=== PATIENT | female | born 1990 | race Caucasian/White ===

== ENCOUNTER 2024-03-31 20:22 | Emergency (ER) | payer BC, OTHER ==
[~2024-03-31] VITALS: Ht 162.6 cm; Wt 82.6 kg
[~2024-03-31 20:22] MED LIST: IBUP-1984 PO; NITR100C6 PO; NO HOME MEDS
[2024-03-31] MEDS ORDERED: HYDR-3965 PO (21:51)
[2024-03-31 22:07] VITALS: BP 174/114; PULSE 88; RESP 16; TEMP 97.7; O2SAT 98
== END 2024-03-31 22:04 | disposition home or self-care (01) ==
LOC: ER 20:22
DX: S80.811A Abrasion, right lower leg, initial encounter (principal); S19.9XXA Unspecified injury of neck, initial encounter; S09.90XA Unspecified injury of head, initial encounter; M54.2 Cervicalgia; Z91.040 Latex allergy status; Z79.899 Other long term (current) drug therapy; Z79.1 Long term (current) use of non-steroidal anti-inflammatories (NSAID); W19.XXXA Unspecified fall, initial encounter; Y93.89 Activity, other specified; Y92.89 Other specified places as the place of occurrence of the external cause; Y99.8 Other external cause status
CPT/HCPCS: 70450; 72125; 99284

== ENCOUNTER 2025-04-06 16:07 | Emergency (ER) | payer OTHER ==
[~2025-04-06] VITALS: Ht 162.6 cm; Wt 68.0 kg
[~2025-04-06 16:07] MED LIST changes: +HYDR-3965 PO
[2025-04-06 19:05] LABS: MEAN PLATELET VOLUME 8.7 FL (7.4-10.4); RED CELL DISTRIBUTION WIDTH 14.4 % (11.5-14.5)
--- NOTE | 2025-04-06 19:12 | ELECTROCARDIOGRAPH REPORT ---
[facility] Test Date: 2025-04-06 Test Time: 19:09:35 Pat Name: DEREK CUMMINS Department: [facility]- Patient ID: [facility]-[id number] Room: Gender: F Dietetic Intern: : 1990 Requested By: NAVEED MELTON Order Number: [id number] Reading MD: Measurements Intervals [place] Rate: 73 P: 65 MT: 179 QRS: 69 QRSD: 76 T: 50 QT: 397 QTc: 438 Interpretive Statements Sinus rhythm Probable left atrial enlargement Please click the below link to view image of tracing.
[2025-04-06 19:18] LABS: CREATININE 1.00 MG/DL (0.40-0.90); TOTAL CARBON DIOXIDE 26.9 MMOL/L (24-32); eCRCL 68 ML/MIN; eGFR 63 ML/MIN
[2025-04-06 20:08] LABS: URINE HCG NEGATIVE (NEG)
[2025-04-06 20:14] LABS: LEUKOCYTE ESTERASE ,URINE NEGATIVE (Neg); NITRITES, URINE NEGATIVE (Neg); OCCULT BLOOD,URINE MODERATE (Neg)
[2025-04-06 20:16] LABS: UA COLLECTION TYPE CLN CATCH MIDSTREAM
[2025-04-06 20:22] LABS: MUCUS STRANDS FEW /LPF (Neg); SQUAMOUS EPITHELIAL CELL,UR FEW /LPF (FEW)
--- NOTE | 2025-04-06 21:09 | Physician Documentation ---
History of Present Illness ~ Chief Complaint: Anxiety Stated Complaint: PANIC ATTACKS Time Seen by MD: 17:03 Primary Medical Doctor: Esau Mode of Arrival: POV, Ambulatory HPI Patient is a 34-year-old female that presents to the emergency department for evaluation of anxiety and panic attacks for the last several days. Patient reports that she has a significant history of anxiety and panic attacks. Patient reports that she stopped taking her medications several months ago and has recently restarted it. Patient reports that she took some of her old Xanax she only takes half a half a pill a day but it does not seem to be working. Patient reports that she has had increased episodes of anxiety including at her child's school and while trying to drive with no obvious triggers. Patient does not report any increased stress or any known cause of her current anxiety or panic attacks. Patient denies taking anything other than her patient has an anxiety medication and a half of a Xanax today. Medication Reconciliation Allergies: Coded Allergies: latex (Verified Allergy, Unknown, 12/31/17) Scheduled Cephalexin*Monohydrate* (Keflex*), 1 CAP PO QID Nitrofurantoin Monohyd/M-Cryst (Macrobid 100 mg Capsule), 1 CAP PO Q12H Scheduled PRN Diazepam (Valium), 1 TAB PO Q12H PRN PRN for anxiety Hydrocodone Bit/Acetaminophen 5/325 MG ([place] 5/325 MG), 1 TAB PO Q6H PRN for pain Ibuprofen* (Motrin*), 1-2 TAB PO Q8H PRN Miscellaneous Medications Home Med List (No Home Medications), (Reported) Past Medical History Past Medical History: No Pertinent History Past Surgical History: no surgical history Last Menstrual Period: Apr 06, 2025 Smoking Status: Current every day smoker Alcohol Use: Heavy Drug Use: none Lives In: Home Review of Systems ROS As stated above in the HPI, otherwise all systems are reviewed and negative. Physical Exam Vital Signs: Temperature: 96.3, Source: Temporal, Heart Rate: 86, Respiratory Rate: 16, BP: 155/105, Pulse Oximetry: 100, Weight: 67.950 Oxygen Flow Rate: 0 Physical Exam VITALS: Reviewed and as above. GENERAL: Alert, presents with mild distress HEENT: Normocephalic, atraumatic, PERRL, EOMI, dry mucosa, no erythema RESPIRATORY: Lungs clear, normal breath sounds, no respiratory distress. CHEST: No accessory muscle use, no retractions CV: Regular rate, rhythm, no edema, no murmur, No: JVD, hypertensive GI: Soft, non-tender, bowels sounds present, no rebound, guarding, or rigidity BACK: No CVA tenderness, or swelling MUSCULOSKELETAL No deformities, no edema SKIN: Warm and dry, no rash NEURO: Oriented x4, No motor or sensory deficit PSYCH: Normal mood and affect, no agitation Progress Results/Orders Results/Orders Completed Orders - NAVEED MELTON [employer]YCLING [employer] Cbc/Diff (04/06/25 18:45) CMP (04/06/25 18:45) Hcg, Ur Ql (04/06/25 18:45) Stat Ekg (04/06/25 18:45) TSH (04/06/25 18:45) Clonidine Tablet (Catapres Tablet) (04/06/25 18:50) Ua W/Microscopic, Cult If Ind (04/06/25 19:50) Lorazepam Tablet (Ativan Tablet) (04/06/25 20:25) Diazepam Inj (Valium Inj) (04/06/25 20:55) Ondansetron Disint. Tablet (Zofran Odt T (04/06/25 21:30) Iohexol 300mg/Ml 100ml Inj. (Omnipaque-3 (04/06/25 22:14) Acetaminophen 325mg Tablet (Tylenol Tabl (04/06/25 22:20) Cephalexin Capsule (Keflex Capsule) (04/06/25 23:50) Medications Received in ER Medications (Trade) Dose Ordered Sig/Reshma Route PRN Reason Start Time Stop Time Status Last Admin Dose Admin (Catapres tablet) 0.1 mg ONCE ONCE PO 04/06/25 18:50 04/06/25 18:51 DC 04/06/25 19:51 0.1 MG (Valium inj) 5 mg ONCE ONCE IM 04/06/25 20:55 04/06/25 20:58 DC 04/06/25 21:18 5 MG (Zofran ODT tablet) 4 mg ONCE ONCE PO 04/06/25 21:30 04/06/25 21:31 DC 04/06/25 22:18 4 MG (Tylenol tablet) 1,000 mg ONCE ONCE PO 04/06/25 22:20 04/06/25 22:21 DC 04/06/25 22:29 1,000 MG (Keflex capsule) 500 mg ONCE ONCE PO 04/06/25 23:50 04/06/25 23:52 DC 04/07/25 00:17 500 MG Vital Signs 04/06/25 04/06/25 04/06/25 04/06/25 16:08 16:23 19:53 21:15 Temp 96.3 Pulse 100 86 96 Resp 18 16 16 B/P (MAP) 188/115 155/105 (122) 156/112 (127) Pulse Ox 100 100 99 O2 Flow Rate 0 04/06/25 04/07/25 23:00 00:16 Pulse 83 73 Resp 16 16 B/P (MAP) 136/82 (100) 126/92 (103) Pulse Ox 99 99 O2 Flow Rate 0 0 Laboratory Tests Test 04/06/25 18:56 04/06/25 19:50 White Blood Count 7.1 Red Blood Count 5.35 Hemoglobin 16.0 Hematocrit 47.3 H Mean Corpuscular Volume 88.5 Mean Corpuscular Hemoglobin 30.0 Mean Corpuscular Hemoglobin Concent 33.9 Red Cell Distribution Width 14.4 Platelet Count 235 Mean Platelet Volume 8.7 Neutrophils (%) (Auto) 67.0 Lymphocytes (%) (Auto) 22.5 Monocytes (%) (Auto) 8.5 Eosinophils (%) (Auto) 1.4 Basophils (%) (Auto) 0.6 Neutrophils # (Auto) 4.8 Lymphocytes # (Auto) 1.6 Monocytes # (Auto) 0.6 Eosinophils # (Auto) 0.1 Basophils # (Auto) 0.0 CBC Comment Sodium Level 136 Potassium Level 3.6 Chloride Level 102 Carbon Dioxide Level 26.9 Anion Gap 7 L Blood Urea Nitrogen 9 Creatinine 1.00 H Estimated GFR/1.73 m2 63 BUN/Creatinine Ratio 9.0 L Glucose Level 90 Calcium Level 9.1 Total Bilirubin 0.5 Aspartate Amino Transf (AST/SGOT) 30 Alanine Aminotransferase (ALT/SGPT) 61 Alkaline Phosphatase 83 Total Protein 7.8 Albumin 3.8 Globulin 4.0 Albumin/Globulin Ratio 1.0 L Thyroid Stimulating Hormone (TSH) 2.00 Chemistry Comments Urine Specimen Description Cln catch midstream Urine Color Yellow Urine Clarity Clear Urine pH 6.5 Urine Specific [place] 1.020 Urine Protein Negative Urine Glucose (UA) Negative Urine Ketones Trace H Urine Occult Blood Moderate H Urine Nitrite Negative Urine Bilirubin Small Urine Urobilinogen 0.2 Urine Leukocyte Esterase Negative Urine RBC 0-2 Urine WBC 0-4 Urine Squamous Epithelial Cells Few Urine Bacteria 1+ Urine Mucus Few Urine Culture Indicated Not ind Volume Urine Centrifuged 10 ml Urine HCG, Qualitative Negative Urine Comment Medical Decision Making Findings 1. This patient presents with symptoms consistent with acute anxiety reaction / panic attack. Low suspicion for acute cardiopulmonary process including ACS, PE, or thoracic aortic dissection. Denies any ingestions or any other medical complaints. No evidence of alcohol withdrawal symptoms. Given history and physical presentation not consistent with overt toxidrome, ingestion. Presentation not consistent with a medical emergency at this time. No acute indication for psychiatric consultation (without SI/HI, AH/VH). Cautious return precautions discussed with full understanding. Head CT negative. Patient given IM Valium with improvement. She will follow up with her primary care provider. Patient will follow up with her mental health provider on the 24 of April or sooner. Patient will return to the emergency department with any worsening or recurrent symptoms or any additional concerning symptoms that we discussed here today i.e. chest pain shortness of breath inability to calm down concern for hurting herself or anyone else or any other concerning symptoms. 2. This patient presents with symptoms consistent with acute uncomplicated cystitis. No systemic symptoms. Not septic. Well appearing. Low suspicion for acute pyelonephritis given lack of fever, CVAT, or systemic features. Low suspicion for kidney stone or infected stone. Upreg negative so doubt ectopic pregnancy_. Low suspicion for ovarian torsion, PID, or appendicitis. Antibiotics prescribed. Patient will follow up with primary care provider. Return to the emergency department with any worsening or recurrent symptoms or any additional concerning symptoms we discussed here today i.e. fevers nausea vomiting back pain or any other concerning symptoms. Differential Dx:Considerations: Include: Alcohol abuse, Anxiety, Bipolar disorder, Conversion disorder, Depression, Encephaloathy, Homicidal, Panic disorder, Personality disorder, Schizophrenia, Substance abuse, Suicidal, Other Departure Disposition: 01 HOME / SELF CARE / HOMELESS Impression: Primary Impression: Anxiety Additional Impressions: Panic attack Urinary tract infection Condition: Stable Discharge Instructions: Alcohol Withdrawal Syndrome, Glgs-[id number]-Namn, Generalized Anxiety Disorder, Adult, Panic Attack, Urinary Tract Infection, Adult Additional Instructions: 1. This patient presents with symptoms consistent with acute anxiety reaction / panic attack. Low suspicion for acute cardiopulmonary process including ACS, PE, or thoracic aortic dissection. Denies any ingestions or any other medical complaints. No evidence of alcohol withdrawal symptoms. Given history and physical presentation not consistent with overt toxidrome, ingestion. Presentation not consistent with a medical emergency at this time. No acute indication for psychiatric consultation (without SI/HI, AH/VH). Cautious return precautions discussed with full understanding. Head CT negative. Patient given IM Valium with improvement. She will follow up with her primary care provider. Patient will follow up with her mental health provider on the 24 of April or sooner. Patient will return to the emergency department with any worsening or recurrent symptoms or any additional concerning symptoms that we discussed here today i.e. chest pain shortness of breath inability to calm down concern for hurting herself or anyone else or any other concerning symptoms. 2. This patient presents with symptoms consistent with acute uncomplicated cystitis. No systemic symptoms. Not septic. Well appearing. Low suspicion for acute pyelonephritis given lack of fever, CVAT, or systemic features. Low suspicion for kidney stone or infected stone. Upreg negative so doubt ectopic pregnancy_. Low suspicion for ovarian torsion, PID, or appendicitis. Antibiotics prescribed. Patient will follow up with primary care provider. Return to the emergency department with any worsening or recurrent symptoms or any additional concerning symptoms we discussed here today i.e. fevers nausea vomiting back pain or any other concerning symptoms. Referrals: NO PRIMARY CARE PROVIDER (PCP) Prescriptions Diazepam (Valium) 5 Mg Tablet 1 TAB PO Q12H PRN PRN for anxiety for 30 Days, #60 TAB 0 Refills Prov: NAVEED MELTON 04/06/25 Cephalexin*Monohydrate* (Keflex*) 500 Mg Capsule 1 CAP PO QID, #28 CAP Prov: NAVEED MELTON 04/06/25 Education Educated: Patient Educated regarding: diagnosis, treatment, need for follow up Signature Scribe Signature: A Attestation: Scribed for Naveed Melton by DAYNA Jacobs . 04/06/25 23:53 NAVEED MELTON Apr 06, 2025 21:09
[2025-04-06] MEDS: diazepam inj 5 MG/ML inj. IM ONE (21:18)
[2025-04-06] MEDS ORDERED: iohexol 300mg/ml 100ml inj. ONE (22:14)
[2025-04-06] MEDS: ondansetron 4mg rapidly disintigrating tab PO ONE (22:18)
[2025-04-06] MEDS ORDERED: DIAZ5TAB PO (23:49)
[2025-04-06] MEDS ORDERED: CEPH-585 PO (23:49)
[2025-04-07 01:22] VITALS: BP 134/80; PULSE 76; RESP 16; TEMP 98.1; O2SAT 99
--- NOTE | 2025-04-09 09:06 | RADIOLOGY REPORT ---
EXAM: CT CT HEAD HISTORY: ACUTE CHANGES COMPARISON: CT HEAD on DOS: 04/06/25, CT CT HEAD on DOS: 03/31/24 TECHNIQUE: Pre and post IV contrast axial CT images of the head were performed. Sagittal and coronal reformatted images were obtained. This CT exam was performed using 1 or more of the following dose re duction techniques: Automated exposure control, adjustment of the mA and/or kv according to patient s ize, or the use of iterative reconstruction techniques. Radiation Dose: CTDI volume is 51.87 mGy. Dose-length product is 2235.22 mGy*cm FINDINGS: No intracranial hemorrhage, masses, midline shift, hydrocephalus, or evidence of acute large vessel i nfarct. Postcontrast images do not demonstrate any abnormal enhancement or enhancing lesions. Contras helder blood flow is identified in the major intracranial vessels. There are mucous retention cysts in t he bilateral maxillary sinuses. The bilateral mastoid air cells and middle ear spaces are clear. No c ranial fracture or scalp edema. IMPRESSION: 1. No acute intracranial process. 2. Bilateral maxillary sinus disease.
== END 2025-04-07 01:31 | disposition home or self-care (01) ==
LOC: ER 16:08
DX: F41.9 Anxiety disorder, unspecified (principal); F41.0 Panic disorder [episodic paroxysmal anxiety]; N39.0 Urinary tract infection, site not specified; R51.9 Headache, unspecified; F17.200 Nicotine dependence, unspecified, uncomplicated; Z91.040 Latex allergy status; Z79.899 Other long term (current) drug therapy
CPT/HCPCS: 36415; 70470; 80053; 81001; 81025; 84443; 85025; 93005; 96372; 99285; J3360; Q9967